=== PATIENT | male | born 1940 | race Caucasian/White ===

== ENCOUNTER → 2024-11-04 11:03 | Outpatient (REF) | payer MEDICARE, OTHER, SELFPAY | LOC: RAD 11:03 | PROVIDERS: ATTENDING PHYSICIAN Physician Assistant Medical; FAMILY PHYSICIAN Family Medicine | DX: R10.11 Right upper quadrant pain (principal); K76.9 Liver disease, unspecified; N28.9 Disorder of kidney and ureter, unspecified | CPT/HCPCS: 74178; 76700; Q9967 ==

== ENCOUNTER → 2024-11-22 08:10 | Outpatient (REF) | payer MEDICARE, OTHER, SELFPAY ==
[2024-11-22] VITALS (9 sets, daily range): BP systolic 74–134; BP diastolic 61–71
[2024-11-22 08:53] LABS: INR 1.16; PT 15.1 Sec (11.4-14.6)
[2024-11-22 08:55] LABS: Hematocrit 44.1 % (39.0-52.0); Hemoglobin 13.9 g/dL (13.0-18.0); Mean Corp Hgb Conc. 31.5 g/dL (33.0-37.0); Mean Corpuscular Volume 91.5 fL (80.0-94.0); Platelet Count 278 10^3/uL (130-400); Red Cell Dist. Width 14.0 % (11.5-14.5)
== END ==
LOC: RADI 08:10
PROVIDERS: ATTENDING PHYSICIAN Internal Medicine Hematology & Oncology; FAMILY PHYSICIAN Family Medicine
DX: C78.7 Secondary malignant neoplasm of liver and intrahepatic bile duct (principal); C91.40 Hairy cell leukemia not having achieved remission
CPT/HCPCS: 36415; 47000; 76942; 85027; 85610; 88307; 88333; 88341; 88342; 99152; 99153

== ENCOUNTER → 2024-11-23 16:46 | Outpatient (REF) | payer MEDICARE, OTHER, SELFPAY | LOC: RAD 16:46 | PROVIDERS: ATTENDING PHYSICIAN Internal Medicine Hematology & Oncology; FAMILY PHYSICIAN Family Medicine | DX: C25.3 Malignant neoplasm of pancreatic duct (principal); D72.819 Decreased white blood cell count, unspecified; D64.9 Anemia, unspecified; C91.40 Hairy cell leukemia not having achieved remission | CPT/HCPCS: 71260; Q9967 ==